=== PATIENT | female | born 1990 | race Hispanic/Latino ===

== ENCOUNTER 2016-09-08 18:26 | Emergency (ER) | payer OTHER ==
[2016-09-08 18:35] VITALS: BP 127/76; PULSE 100; RESP 20; TEMP 97.4; O2SAT 99
--- NOTE | 2016-09-08 19:52 | ED PDOC ---
Upper Extremity Pain/Injury Chief Complaint (Nursing): Abnormal Skin Integrity Chief Complaint (Provider): Left Hand Laceration History Per: Patient History/Exam Limitations: no limitations Onset/Duration Of Symptoms: Hrs Current Symptoms Are (Timing): Still Present Additional Complaint(s): 18:50 Elaine Bales is a 26 year old female that presents to the ED with a chief complaint of a left hand laceration located between her thumb and second digit. Upon arrival dressing was applied to hand and the bleeding was controlled. right hand dominant. sustained while cutting fruit. denies dec ROM, numbness or weakness. admits to bleeding, but better controlled now. PMD: None Past Medical History Reviewed: Historical Data, Nursing Documentation, Vital Signs Vital Signs: Last Vital Signs Temp 97.4 F L 09/08/16 18:33 Pulse 100 H 09/08/16 18:33 Resp 20 09/08/16 18:33 BP 127/76 09/08/16 18:33 Pulse Ox 99 09/08/16 18:33 - Medical History PMH: No Chronic Diseases - Family History Family History: States: Unknown Family Hx - Immunization History Hx Tetanus Toxoid Vaccination: Yes - Home Medications Home Medications: Ambulatory Orders Medication Instructions Recorded Cephalexin [cephalexin] 500 mg PO BID #20 cap 09/08/16 - Allergies Allergies/Adverse Reactions: Allergies Allergy/AdvReac Type Severity Reaction Status Date / Time No Known Allergies Allergy Verified 09/08/16 18:32 Review of Systems ROS Statement: Except As Marked, All Systems Reviewed And Found Negative Musculoskeletal: Positive for: Hand Pain (left hand laceration) Physical Exam - Reviewed Nursing Documentation Reviewed: Yes Vital Signs Reviewed: Yes - Physical Exam Appears: Positive for: Non-toxic, No Acute Distress Head Exam: Positive for: ATRAUMATIC, NORMOCEPHALIC Skin: Positive for: Normal Color, Warm Eye Exam: Positive for: Normal appearance Extremity: Positive for: Normal ROM (full ROM), Tenderness, Other (btw 1st adn 2nd digit at webspace exnteding into thenar aspect of hand: deep semilunar 3cm in length laceration into fully through epidermal layers and subq layer muscle belly exposed no tendon involvment no bone obvious. FROM of fingers no swelling no active bleeding.nuerovasc intact). Negative for: Deformity (no obvious muscle deformity), Swelling - ECG O2 Sat by Pulse Oximetry: 99 (RA) Pulse Ox Interpretation: Normal - Radiology X-Ray: Read By Radiologist (no FB ) Medical Decision Making Medical Decision Makin:18 Initial Impression: Left Hand Laceration Initial Plan: * X-Ray Left Hand * Reevaluation 19:50 X-Ray negative. Laceration repair of left hand. 20:30 Good approximation, patient tolerated procedure well with no immediate complications. Upon provider reevaluation patient is feeling better, is medically stable, and requires no further treatment in the ED at this time. Patient will be discharged home with Rx for Cephalexin and instructions on how to care for sutures. Counseling was provided and all questions were answered regarding diagnosis and need for follow up with Dr. Kolton Rajput. There is agreement to discharge plan. Return if symptoms persist or worsen. advised to immediately have hand surgery f/u in 2-3 days keep wound dry do not get we keep splint on and monitor for signs of infection warned due to depth high risk of infxn. pt understands. pt was explained that plastics in not avail in ED and has the options of seeking a plastics at another hospital for cosmetics purposes but did opt to do procedure with [facility] Clinical Impression: Laceration Scribe Attestation: Documented by Kelin Peace, acting as a scribe for Emilee Medina PA-C. Provider Scribe Attestation: All medical record entries made by the Scribe were at my direction and personally dictated by me. I have reviewed the chart and agree that the record accurately reflects my personal performance of the history, physical exam, medical decision making, and the department course for this patient. I have also personally directed, reviewed, and agree with the discharge instructions and disposition Procedures - Laceration/Wound Repair Left Hand Wound Length (cm): 3 Wound's Depth, Shape: linear, irregular Wound Explored: clean Irrigated w/ Saline (ccs): 500 Betadine Prep?: Yes (500 ccs betadine and NS) Anesthesia: 1% Lidocaine Volume Anesthetic (ccs): 4 Wound Debrided: minimal Wound Repaired With: Sutures (simple, interrupted, sub-acute) Suture Size/Type: 5:0 (vicryl- 1st layer sub q absroable sutures), 4:0 (nylon- simple interupted 2nd layer to epidermis well approximated) Number of Sutures: 8 (3 vicryl sutures, 5 nylon sutures) Layer Closure?: Yes Deep Layer Suture Size/Type: 5:0 Number Deep Layer Sutures: 3 Wound Complexity: Complex Sterile Dressing Applied?: Yes Splint Applied?: Yes Type of Splint Applied: metal pre-form splint Disposition - Clinical Impression Clinical Impression: Laceration - Patient ED Disposition Is Patient to be Admitted: No Counseled Patient/Family Regarding: Studies Performed, Diagnosis, Need For Followup, Rx Given - Disposition Referrals: Kolton Rajput MD [Staff Provider] - Disposition: Routine/Home Disposition Time: 12:49 Condition: STABLE Additional Instructions: keep splint on keep wound clean do follow up with hand surgeon do not get wound wet follow up with your doctor or return to Ed in 8 days for wound check Prescriptions: Cephalexin [cephalexin] 500 mg PO BID #20 cap Instructions: Care For Your Stitches (ED), Laceration (ED), Care For Your Absorbable Stitches (ED) Forms: [facility] ED School/Work Excuse
--- NOTE | 2016-09-09 08:41 | RAD ---
PROCEDURE: Left Hand Radiographs. HISTORY: Laceration. COMPARISON: None. FINDINGS: BONES: No apparent fracture. JOINTS: Normal. No osteoarthritic changes. SOFT TISSUES: Soft tissue irregularity between the 1st and 2nd digits, consistent with patient's history of laceration. No radiopaque foreign body identified, the site of laceration. OTHER FINDINGS: None. IMPRESSION: No apparent fracture. Soft tissue laceration between the 1st and 2nd digits. No radiopaque foreign body identified at the site laceration. Direct visualization recommended.
== END 2016-09-08 20:47 | disposition home or self-care (01) ==
LOC: H.ER 18:26
DX: S61.412A Laceration without foreign body of left hand, initial encounter (principal); W26.0XXA Contact with knife, initial encounter; Y92.89 Other specified places as the place of occurrence of the external cause